=== PATIENT | female | born 1970 | race Caucasian/White ===

== ENCOUNTER 2018-02-18 20:28 | Emergency (ER) | payer SELFPAY ==
--- NOTE | 2018-02-18 21:48 | RAD REPORT ---
EXAM DESCRIPTION: Sonia Schwarz (2 Views)02/18/2018 9:08 pm CLINICAL HISTORY: Cough COMPARISON: None FINDINGS: The lungs appear clear of acute infiltrate. The heart is normal size IMPRESSION: No acute abnormalities displayed
[2018-02-18] MEDS ORDERED: NA CHLORIDE 0.9% 1,000 ML ONE (23:05)
[2018-02-19 00:10] LABS: Absolute Lymphocytes (CBC) 2.5 K/uL (0.7-4.9); Absolute Monocytes 0.9 K/uL (0.1-1.3); Basophils % 0.3 % (0-1.3); Eosinophils % 0.5 % (0-4.4); Hematocrit 45.9 % (36.0-45.0); Lymphocytes % 29.3 % (15.3-44.8); MPV 9.4 fL (7.6-11.3); Monocytes % 11.1 % (3.3-12.3); RBC Red Blood Cell Count 5.15 M/uL (3.86-4.86)
[2018-02-19 00:17] LABS: Albumin 3.2 g/dL (3.4-5.0); Bilirubin Direct 0.2 mg/dL (0-0.2); Bilirubin Total 0.7 mg/dL (0.2-1.0); Potassium 3.1 mmol/L (3.5-5.1); Protein, Total 7.5 g/dL (6.4-8.2)
--- NOTE | 2018-02-19 00:40 | EDPHYS ---
Physician Documentation [facility] Name: Mikayla Chase Age: 47 yrs Sex: Female : 1970 Arrival Date: 02/18/2018 Time: 20:32 Bed 19 Private MD: ED Physician Yasmany Arechiga HPI: 02/19 05:16 This 47 yrs old Female presents to ER via Ambulatory with complaints of Flu kdr Symptoms. 05:16 The patient has been feeling poorly for the past four days including fever, chill, n/v. kdr Onset: The symptoms/episode began/occurred gradually, 4 day(s) ago. Severity of symptoms: At their worst the symptoms were mild moderate just prior to arrival, in the emergency department the symptoms are unchanged. The patient has not experienced similar symptoms in the past. The patient has not recently seen a physician. HEAD OF RESEARCH & INSIGHTS: 02/18 20:52 LMP N/A - Irregular menses aj Historical: - Allergies: 20:52 Codeine; aj - Home Meds: 20:52 None [Active]; aj - PMHx: 20:52 Diabetes - NIDDM; aj - Immunization history:: Adult Immunizations up to date. - Social history:: Smoking status: Patient uses tobacco products, smokes one pack cigarettes per day. - Ebola Screening: : Patient negative for fever greater than or equal to 101.5 degrees Fahrenheit, and additional compatible Ebola Virus Disease symptoms Patient denies exposure to infectious person Patient denies travel to an Ebola-affected area in the 21 days before illness onset No symptoms or risks identified at this time. ROS: 02/19 05:16 Constitutional: Negative for chills, and weight loss has had subjective fever and flu kdr like s/s Eyes: Negative for injury, pain, redness, and discharge, ENT: Negative for injury, pain, and discharge, Neck: Negative for injury, pain, and swelling, Cardiovascular: Negative for chest pain, palpitations, and edema, Respiratory: Negative for shortness of breath, cough, wheezing, and pleuritic chest pain, Abdomen/GI: Negative for abdominal pain, nausea, vomiting, diarrhea, and constipation, Back: Negative for injury and pain, : Negative for injury, bleeding, discharge, and swelling, Skin: Negative for injury, rash, and discoloration, Neuro: Negative for headache, weakness, numbness, tingling, and seizure activity. Psych: Negative for depression, anxiety, suicide ideation, homicidal ideation, and hallucinations, Allergy/Immunology: Negative for hives, rash, and allergies, Endocrine: Negative for neck swelling, polydipsia, polyuria, polyphagia, and marked weight changes, Hematologic/Lymphatic: Negative for swollen nodes, abnormal bleeding, and unusual bruising. MS/extremity: Positive for pain, Generalized myalgias . Exam: 05:16 Constitutional: This is a well developed, well nourished patient who is awake, alert, kdr and in no acute distress. Head/Face: Normocephalic, atraumatic. Eyes: Pupils equal round and reactive to light, extra-ocular motions intact. Lids and lashes normal. Conjunctiva and sclera are non-icteric and not injected. Cornea within normal limits. Periorbital areas with no swelling, redness, or edema. Neck: Trachea midline, no thyromegaly or masses palpated, and no cervical lymphadenopathy. Supple, full range of motion without nuchal rigidity, or vertebral point tenderness. No Meningismus. Chest/axilla: Normal chest wall appearance and motion. Nontender with no deformity. No lesions are appreciated. Cardiovascular: Regular rate and rhythm with a normal S1 and S2. No gallops, murmurs, or rubs. Normal PMI, no JVD. No pulse deficits. Respiratory: Lungs have equal breath sounds bilaterally, clear to auscultation and percussion. No rales, rhonchi or wheezes noted. No increased work of breathing, no retractions or nasal flaring. Abdomen/GI: Soft, non-tender, with normal bowel sounds. No distension or tympany. No guarding or rebound. No evidence of tenderness throughout. Back: No spinal tenderness. No costovertebral tenderness. Full range of motion. Skin: Warm, dry with normal turgor. Normal color with no rashes, no lesions, and no evidence of cellulitis. MS/ Extremity: Pulses equal, no cyanosis. Neurovascular intact. Full, normal range of motion. Neuro: Awake and alert, GCS 15, oriented to person, place, time, and situation. Cranial nerves II-XII grossly intact. Motor strength 5/5 in all extremities. Sensory grossly intact. Cerebellar exam normal. Normal gait. Psych: Awake, alert, with orientation to person, place and time. Behavior, mood, and affect are within normal limits. Vital Signs: 02/18 20:52 BP 156 / 64; Pulse 78; Resp 24; Temp 99.0; Pulse Ox 96% on R/A; Weight 56.7 kg; Height aj 4 ft. 11 in. (149.86 cm); 23:08 BP 142 / 76; Pulse 59; Resp 18; Pulse Ox 97% on R/A; ca1 02/19 00:30 BP 132 / 64; Pulse 75; Resp 18; Pulse Ox 98% on R/A; ca1 02/18 20:52 Body Mass Index 25.25 (56.70 kg, 149.86 cm) aj MDM: 00:39 Patient medically screened. kdr 05:16 Data reviewed: vital signs, nurses notes, lab test result(s), radiologic studies. kdr Counseling: I had a detailed discussion with the patient and/or guardian regarding: the historical points, exam findings, and any diagnostic results supporting the discharge/admit diagnosis, lab results, radiology results, the need for outpatient follow up. 02/18 20:54 Order name: Flu; Complete Time: 22:24 02/18 20:54 Order name: Strep; Complete Time: 22:24 02/18 21:38 Order name: Throat Culture EDMS 02/18 22:42 Order name: CBC with Diff [facility] 02/18 22:42 Order name: Chem 7 kdr 02/18 22:42 Order name: LFT's kdr 02/18 20:54 Order name: XRAY Chest Pa And Lat (2 Views); Complete Time: 22:24 02/18 22:42 Order name: UDS; Complete Time: 05:20 kdr 02/18 22:42 Order name: ETOH Level; Complete Time: 00:36 kdr 02/18 22:42 Order name: CBC with Automated Diff; Complete Time: 00:36 EDMS 02/18 22:43 Order name: Basic Metabolic Panel; Complete Time: 00:36 EDMS 02/18 22:43 Order name: Liver (Hepatic) Function; Complete Time: 00:36 EDMS Administered Medications: 02/18 23:45 Drug: NS 0.9% 1000 ml Route: IV; Rate: 1 bolus; Site: right antecubital; ca1 02/19 00:28 Follow up: Response: No adverse reaction; IV Status: Completed infusion ca1 00:50 Drug: Potassium Chloride 40 mEq Route: PO; ca1 00:56 Follow up: Response: Medication administered at discharge. ca1 Disposition: 02/19/18 00:39 Discharged to Home. Impression: Mild dehydration, hypokalemia, musculoskeletal pain. - Condition is Stable. - Discharge Instructions: Viral Respiratory Infection, [id number], Hypokalemia. - Prescriptions for Zofran 4 mg Oral Tablet - take 1 tablet by ORAL route every 4-6 hours As needed; 12 tablet. Tramadol 50 mg Oral Tablet - take 1 tablet by ORAL route every 8 hours as needed; 12 tablet. Pepcid 20 mg Oral Tablet - take 1 tablet by ORAL route every 12 hours for 5 days; 10 tablet. Tamiflu 75 mg Oral Capsule - take 1 tablet by ORAL route every 12 hours for 5 days; 10 tablet. - Medication Reconciliation Form, Thank You Letter form. - Follow up: Private Physician; When: 2 - 3 days; Reason: Wound Recheck, Recheck today's complaints, Continuance of care, Re-evaluation by your physician. - Problem is new. - Symptoms have improved. Signatures: Dispatcher [employer] EDMS Shelby Ramon RN RN Yasmany Ross MD MD [facility] Nidhi Gonsales RN RN ca1 Corrections: (The following items were deleted from the chart) 00:59 00:39 02/19/2018 00:39 Discharged to Home. Impression: Mild dehydration, hypokalemia, ca1 musculoskeletal pain. Condition is Stable. Forms are Medication Reconciliation Form, Thank You Letter, Antibiotic Education, Prescription Opioid Use. Follow up: Private Physician; When: 2 - 3 days; Reason: Wound Recheck, Recheck today's complaints, Continuance of care, Re-evaluation by your physician. Problem is new. Symptoms have improved. kdr
--- NOTE | 2018-02-19 00:40 | ER ---
Nurse's Notes [facility] Name: Mikayla Chase Age: 47 yrs Sex: Female : 1970 Arrival Date: 02/18/2018 Time: 20:32 Bed 19 Private MD: Diagnosis: Mild dehydration, hypokalemia, musculoskeletal pain Presentation: 02/18 20:51 Presenting complaint: Patient states: Cough, congestion, fever, body aches, N/V for 4 aj days. Transition of care: patient was not received from another setting of care. Onset of symptoms was February 14, 2018. Risk Assessment: Do you want to hurt yourself or someone else? Patient reports no desire to harm self or others. Initial Sepsis Screen: Does the patient meet any 2 criteria? No. Patient's initial sepsis screen is negative. Does the patient have a suspected source of infection? No. Patient's initial sepsis screen is negative. Care prior to arrival: None. 20:51 Method Of Arrival: Ambulatory aj 20:51 Acuity: PITO 3 aj Triage Assessment: 20:52 General: Appears in no apparent distress. uncomfortable, Behavior is calm, cooperative, aj appropriate for age. Pain: Complains of pain in face, scalp, chest and abdomen. EENT: Reports nasal congestion nasal discharge pain when swallowing. Neuro: Level of Consciousness is awake, alert, obeys commands, Oriented to person, place, time, situation, Appropriate for age. Respiratory: Reports shortness of breath cough that is Airway is patent Respiratory effort is even, unlabored, Respiratory pattern is regular, symmetrical. GI: Reports lower abdominal pain, upper abdominal pain, nausea, vomiting. Derm: Skin is intact, is healthy with good turgor, Skin is pink, warm \T\ dry. normal. TRIM CARPENTER: 20:52 LMP N/A - Irregular menses aj Historical: - Allergies: 20:52 Codeine; aj - Home Meds: 20:52 None [Active]; aj - PMHx: 20:52 Diabetes - NIDDM; aj - Immunization history:: Adult Immunizations up to date. - Social history:: Smoking status: Patient uses tobacco products, smokes one pack cigarettes per day. - Ebola Screening: : Patient negative for fever greater than or equal to 101.5 degrees Fahrenheit, and additional compatible Ebola Virus Disease symptoms Patient denies exposure to infectious person Patient denies travel to an Ebola-affected area in the 21 days before illness onset No symptoms or risks identified at this time. Screenin:50 Abuse screen: Denies threats or abuse. Denies injuries from another. Nutritional ca1 screening: No deficits noted. Tuberculosis screening: No symptoms or risk factors identified. Fall Risk None identified. Assessment: 22:50 General: Appears in no apparent distress. comfortable, Behavior is calm, cooperative, ca1 appropriate for age. 22:50 Pain: Denies pain. Neuro: Level of Consciousness is awake, alert, obeys commands, ca1 Oriented to person, place, time, situation. Cardiovascular: Heart tones S1 S2 present Capillary refill < 3 seconds Patient's skin is warm and dry. Respiratory: Reports cough that is non-productive, since 4 days ago. Airway is patent Trachea midline Respiratory effort is even, unlabored, Respiratory pattern is regular, symmetrical. GI: Abdomen is flat, non-distended, Bowel sounds present X 4 quads. Abd is soft and non tender X 4 quads. Reports diarrhea, nausea, vomiting. : No signs and/or symptoms were reported regarding the genitourinary system. EENT: No signs and/or symptoms were reported regarding the EENT system. Derm: Skin is intact, is healthy with good turgor, Skin is pink, warm \T\ dry. Musculoskeletal: Circulation, motion, and sensation intact. Range of motion: intact in all extremities. 02/19 00:30 Reassessment: Patient appears in no apparent distress at this time. Patient and/or ca1 family updated on plan of care and expected duration. Pain level reassessed. Patient is alert, oriented x 3, equal unlabored respirations, skin warm/dry/pink. Encouraged patient to urinate as to collect urine sample for tests. Vital Signs: 02/18 20:52 BP 156 / 64; Pulse 78; Resp 24; Temp 99.0; Pulse Ox 96% on R/A; Weight 56.7 kg; Height aj 4 ft. 11 in. (149.86 cm); 23:08 BP 142 / 76; Pulse 59; Resp 18; Pulse Ox 97% on R/A; ca1 02/19 00:30 BP 132 / 64; Pulse 75; Resp 18; Pulse Ox 98% on R/A; ca1 02/18 20:52 Body Mass Index 25.25 (56.70 kg, 149.86 cm) aj ED Course: 02/18 20:32 Patient arrived in ED. es 20:52 Triage completed. aj 20:52 Arm band placed on left wrist. Patient placed in waiting room, Patient notified of wait aj time. Labs ordered per protocol. X-ray ordered. 21:07 XRAY Chest Pa And Lat (2 Views) In Process Unspecified. EDMS 22:24 Yasmany Arechiga MD is Attending Physician. kdr 22:32 Nidhi Gonsales RN is Primary Nurse. ca1 22:55 Patient has correct armband on for positive identification. Placed in gown. Bed in low ca1 position. Call light in reach. Side rails up X 1. Pulse ox on. NIBP on. Warm blanket given. 23:20 Missed attempt(s): 22 gauge in left in right antecubital area. ag4 23:36 Missed attempt(s): 22 gauge in left antecubital area. ca1 23:45 Initial lab(s) drawn, by me, sent to lab. jp3 23:53 Inserted saline lock: 22 gauge in right upper arm, using aseptic technique. Blood jp3 collected. 23:54 LFT's Sent. jp3 23:54 Chem 7 Sent. jp3 23:54 CBC with Diff Sent. jp3 23:54 Liver (Hepatic) Function Sent. jp3 23:54 Basic Metabolic Panel Sent. jp3 23:54 CBC with Automated Diff Sent. jp3 23:54 ETOH Level Sent. jp3 23:55 Lights dimmed. Warm blanket given. Pillow given. jp3 02/19 00:57 IV discontinued, intact, bleeding controlled, No redness/swelling at site. Pressure ca1 dressing applied. 00:58 No provider procedures requiring assistance completed. ca1 Administered Medications: 02/18 23:45 Drug: NS 0.9% 1000 ml Route: IV; Rate: 1 bolus; Site: right antecubital; ca1 02/19 00:28 Follow up: Response: No adverse reaction; IV Status: Completed infusion ca1 00:50 Drug: Potassium Chloride 40 mEq Route: PO; ca1 00:56 Follow up: Response: Medication administered at discharge. ca1 Outcome: 00:39 Discharge ordered by . kdr 00:57 Discharged to home ambulatory, with significant other. ca1 00:57 Condition: stable 00:57 Discharge instructions given to patient, significant other, Instructed on discharge instructions, follow up and referral plans. medication usage, Demonstrated understanding of instructions, follow-up care, medications, Prescriptions given X 4. 00:59 Patient left the ED. ca1 Signatures: Dispatcher [employer] Shelby Hayes, RN RN Yasmany Ross MD MD kdr Salyer, Mitesh Arvizu jp3 Galdino Eric ag4 Nidhi Gonsales RN RN ca1 Corrections: (The following items were deleted from the chart) 02/18 23:14 23:10 General: Appears ca1 ca1 23:16 22:50 Patient has correct armband on for positive identification. Placed in gown. Bed ca1 in low position. Call light in reach. Side rails up X 1. ca1 23:16 22:50 Pulse ox on. NIBP on. ca1 ca1 23:16 22:50 Warm blanket given. ca1 ca1
[2018-02-19] MEDS ORDERED: POTASSIUM CL SA 10 MEQ TAB PO ONE (00:57)
[2018-02-19 01:12] LABS: Barbiturates NEGATIVE (NEGATIVE); Benzodiazepines NEGATIVE (NEGATIVE); Cocaine POSITIVE (NEGATIVE); METHAMPHETAM NEGATIVE (NEGATIVE); Methadone NEGATIVE (NEGATIVE); Opiates NEGATIVE (NEGATIVE); Phencyclidine NEGATIVE (NEGATIVE); THC Cannibis POSITIVE (NEGATIVE)
== END 2018-02-19 00:59 | disposition home or self-care (01) ==
LOC: ER 20:28
DX: E86.0 Dehydration (principal); E87.6 Hypokalemia; M79.18 Myalgia, other site; F17.210 Nicotine dependence, cigarettes, uncomplicated
CPT/HCPCS: 36415; 71046; 80048; 80076; 80307; 80320; 85025; 87070; 87081; 87804; 96360; 99284; J7030